=== PATIENT | female | born 1945 | race African-American/Black ===

== ENCOUNTER 2021-11-14 13:02 | Emergency (ER) | payer OTHER ==
[2021-11-14 14:01] VITALS: TEMP 97.4; BMI 34.0
[2021-11-14 15:59] LABS: BASO % 0.4 % (0-2.0); EOS % 0.4 % (0-4.5); HEMATOCRIT 29.6 % (32.4-45.2); HEMOGLOBIN 9.6 GM/dL (10.7-15.3); LYMPH % 17.6 % (8-40); MCH 30.2 pg (25.7-33.7); MCHC 32.4 g/dl (32.0-36.0); MEAN PLT VOLUME 8.4 fl (7.5-11.1); MONO % 4.2 % (3.8-10.2); NEUT % 77.4 % (42.8-82.8); PLATELET COUNT 217 10^3/uL (134-434); RBC 3.18 M/mm3 (3.60-5.2); WHITE BLOOD COUNT 9.8 K/mm3 (4.0-10.0)
[2021-11-14 16:08] LABS: INR 1.02 (0.83-1.09); PROTHROMBIN TIME (PATIENT) 11.4 SEC (9.7-13.0)
[2021-11-14 16:09] LABS: VENOUS BASE EXCESS -7.3 mmol/L (-2-2); VENOUS O2 SATURATION 60.7 % (70-80); VENOUS PCO2 38.6 mmHg (38-52); VENOUS PH 7.299 (7.310-7.410)
[2021-11-14 16:10] LABS: ACTIVATED PTT 32.2 SECONDS (25.2-36.5)
[2021-11-14 16:17] LABS: CHLORIDE 101 mmol/L (98-107); SODIUM 133 mmol/L (136-145)
[2021-11-14 16:19] LABS: ALBUMIN 3.4 g/dl (3.4-5.0); BLOOD UREA NITROGEN 45.6 mg/dL (7-18); CALCIUM 9.2 mg/dL (8.5-10.1); CO2 18 mmol/L (21-32); GLUCOSE,RANDOM 301 mg/dL (74-106)
[2021-11-14 16:23] LABS: CREATININE 3.1 mg/dL (0.55-1.3); SGOT/AST 298 U/L (15-37); SGPT/ALT 200 U/L (13-61)
[2021-11-14 16:25] LABS: BILIRUBIN,TOTAL 0.5 mg/dL (0.2-1); TOT PROT 7.1 g/dl (6.4-8.2)
[2021-11-14 16:26] LABS: ALK PHOS 173 U/L (45-117)
[2021-11-14 17:00] LABS: ANION GAP 13 MMOL/L (8-16)
[2021-11-14] MEDS ORDERED: INSULIN REGULAR HUMAN 100 UNITS/ML *VIAL IVPUSH ONE (17:05)
[2021-11-14] MEDS ORDERED: CALCIUM GLUCONATE 10% - 1,000 MG/10 ML VIAL IVPB ONE (17:05)
[2021-11-14] MEDS ORDERED: DEXTROSE 50%-WATER - 25 GM/50 ML VIAL IVPUSH ONE (17:06)
[2021-11-14] MEDS ORDERED: CALCIUM GLUCONATE 10% - 1,000 MG/10 ML VIAL ONE (17:07)
[2021-11-14] MEDS ORDERED: DEXTROSE 50%-WATER 25 GM/50 ML DISP.SYRIN ONE (17:07)
[2021-11-14] MEDS ORDERED: SODIUM ZIRCONIUM CYCLOSILICATE (LOKELMA) 5 GM PACKET PO ONE (17:26)
[2021-11-14] MEDS ORDERED: SODIUM CHLORIDE 0.9% 1000 ML INFUS.BAG IV ONE (17:26)
[2021-11-14] MEDS ORDERED: SODIUM ZIRCONIUM CYCLOSILICATE (LOKELMA) 5 GM PACKET ONE (17:58)
[2021-11-14 18:47] LABS: URINE APPEARANCE CLEAR; URINE BILIRUBIN NEGATIVE (NEGATIVE); URINE COLOR YELLOW; URINE GLUCOSE (UA) TRACE (NEGATIVE); URINE KETONE NEGATIVE (NEGATIVE); URINE LEUK ESTERASE NEGATIVE (NEGATIVE); URINE NITRITE NEGATIVE (NEGATIVE); URINE PROTEIN NEGATIVE (NEGATIVE); URINE UROBILINOGEN 0.2 mg/dL (0.2-1.0)
[2021-11-14 20:19] VITALS: BP 173/76; PULSE 86
== END 2021-11-14 20:20 | disposition short-term general hospital (02) ==
LOC: JER 13:02
PROC: 3E033GC Introduction of Other Therapeutic Substance into Peripheral Vein, Percutaneous Approach (ICD-10-PCS; principal; 2021-11-14)
PROC: 3E033GC Introduction of Other Therapeutic Substance into Peripheral Vein, Percutaneous Approach (ICD-10-PCS; 2021-11-14)
PROC: 3E013VG Introduction of Insulin into Subcutaneous Tissue, Percutaneous Approach (ICD-10-PCS; 2021-11-14)
DX: I48.3 Typical atrial flutter (principal); E87.5 Hyperkalemia; N17.9 Acute kidney failure, unspecified
CPT/HCPCS: 36415; 71045-TC-FY; 80053; 81003; 82010; 82272; 82550; 82553; 82803; 82962; 84443; 84484; 85025; 85610; 85730; 86850; 86900; 86901; 87086; 93005; 93010; 99291; C9803-CS; U0003; U0005